=== PATIENT | female | born 1940 | race Caucasian/White ===

== ENCOUNTER 2023-04-22 11:07 | Outpatient (CLI) | payer MEDICARE, SELFPAY ==
--- NOTE | 2023-04-22 11:15 | USCV_ITS ---
Raegan Braun Age: 82 Gender: F : 1940 Exam Date: 04/22/2023 11:26 Ordering Phys: Nancy Verma TACK MAKER TACK MAKER Technologist: CT [place] [facility] [place]ication: murmur BP: 104 / 68 HR: 65 Rhythm: Sinus Technical Quality: Adequate MEASUREMENTS (Male / Female) Normal Values 2D ECHO LV Ejection Fraction MOD 2C 56.7 % LV Ejection Fraction 2C AL 55.8 % LA Diameter 4.0 cm Aorta at Sinotubular Diameter 2.2 cm M-MODE Aortic Annulus Diameter 3.3 cm LA Ao Ratio MM 1.3 MV E Point Septal Separation 1.2 cm DOPPLER AV Peak Velocity 187.0 cm/s LVOT Peak Velocity 140.0 cm/s MV Area PHT 3.1 cm squared Mitral E to A Ratio 0.6 MV E' Velocity 35.0 cm/s Mitral E to MV E' Ratio 8.1 Mitral E to LV E' Lateral Ratio 9.2 Mitral E to LV E' Septal Ratio 7.3 TR Peak Velocity 253.0 cm/s TR Peak Gradient 25.6 mmHg TV Peak E Velocity 76.0 cm/s Right Atrial Pressure 3.0 mmHg Pulmonary Artery Systolic Pressu 28.6 mmHg PV Peak Velocity 105.0 cm/s FINDINGS Left Ventricle Normal left ventricular size and systolic function, EF 55 %. Mild left ventricular hypertrophy. Grade I/IV diastolic dysfunction (abnormal relaxation filling pattern), normal to mildly elevated filling pressures. Right Ventricle The right ventricle is normal in size and function. Right Atrium The right atrium is normal in size. Left Atrium Mildly increased left atrial size. Mitral Valve Thickened mitral valve. Moderate mitral annular calcification. Aortic Valve Thickened aortic valve. Tricuspid Valve Trace to mild tricuspid valve regurgitation. Estimated pulmonary artery peak systolic pressure 29 mmHg Pulmonic Valve Pulmonic valve not well visualized. Pericardium No pericardial effusion. Aorta . Normal aortic annulus size. IVC Inferior vena cava not visualized. CONCLUSIONS Normal left ventricular size and systolic function, EF 55 %. Mild left ventricular hypertrophy. Grade I/IV diastolic dysfunction (abnormal relaxation filling pattern), normal to mildly elevated filling pressures. Mildly increased left atrial size. Thickened mitral valve. Moderate mitral annular calcification. Thickened aortic valve. Trace to mild tricuspid valve regurgitation. Estimated pulmonary artery peak systolic pressure 29 mmHg. There is no pericardial effusion. There are no intracardiac masses. No similar previous studies are available for comparison Dr Sharri Schwab MD FACC (Electronically Signed) Final Date: 24 April 2023 08:44 S
== END 2023-04-22 11:08 | disposition home or self-care (01) ==
LOC: RAD 11:07
PROVIDERS: PCP Nurse Practitioner Family; Visit Provider Nurse Practitioner Family
DX: R01.1 Cardiac murmur, unspecified (principal); I08.0 Rheumatic disorders of both mitral and aortic valves
CPT/HCPCS: 93306

== ENCOUNTER → 2023-05-13 13:56 | Outpatient (BNVA) | payer MEDICARE, SELFPAY | PROVIDERS: PCP Nurse Practitioner Family; Visit Provider Podiatrist Foot & Ankle Surgery | DX: I73.9 Peripheral vascular disease, unspecified (principal); L60.3 Nail dystrophy; L60.8 Other nail disorders; M20.41 Other hammer toe(s) (acquired), right foot; M20.42 Other hammer toe(s) (acquired), left foot | CPT/HCPCS: 11721; 99203 ==

== ENCOUNTER → 2023-06-12 09:02 | Outpatient (BNVA) | payer MEDICARE, SELFPAY | PROVIDERS: PCP Nurse Practitioner Family; Referring Provider Nurse Practitioner Family; Visit Provider Psychiatry & Neurology Neurology | DX: G50.0 Trigeminal neuralgia (principal); F03.A0 Unspecified dementia, mild, without behavioral disturbance, psychotic disturbance, mood disturbance, and anxiety | CPT/HCPCS: 99202 ==

== ENCOUNTER 2023-06-16 23:26 | Observation (INO) | payer MEDICARE, SELFPAY ==
[2023-06-16 23:30] VITALS: BP 128/76; PULSE 68; RESP 17; TEMP 36.6; O2SAT 93; BMI 30.9
--- NOTE | 2023-06-16 23:38 | CTR_ITS ---
PROCEDURE INFORMATION: Exam: CT Head Without Contrast Exam date and time: 06/16/2023 11:59 PM Age: 82 years old Clinical indication: Altered mental status/memory loss; Patient HX: Took to much of her muscle relaxer, found on floor; Additional info: AMS TECHNIQUE: Imaging protocol: Computed tomography of the head without contrast. Radiation optimization: All CT scans at this facility use at least one of these dose optimization techniques: automated exposure control; mA and/or kV adjustment per patient size (includes targeted exams where dose is matched to clinical indication); or iterative reconstruction. COMPARISON: No relevant prior studies available. RADIATION DOSE METRICS: Total DLP (mGy-cm): 1163 FINDINGS: Brain: No evidence for acute intracranial hemorrhage, mass effect, or definite acute infarct by CT. Kzxx-wz-yunqxitj generalized cerebral atrophy. Mpge-me-boadlcmx presumed chronic small-vessel ischemic changes in the cerebral white matter. Cerebral ventricles: No ventriculomegaly. Paranasal sinuses: Visualized sinuses are unremarkable. No fluid levels. Mastoid air cells: Visualized mastoid air cells are well aerated. Bones/joints: Unremarkable. No acute fracture. Soft tissues: Unremarkable. CT/CT head wo con* [id number] IMPRESSION: No acute intracranial abnormality.
--- NOTE | 2023-06-16 23:45 | ECG_ITS ---
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 Measurements Intervals [place] Rate: 68 P: 70 SD: 194 QRS: 36 QRSD: 118 T: 65 QT: 431 QTc: 459 Interpretive Statements SINUS RHYTHM MODERATE INTRAVENTRICULAR CONDUCTION DELAY [110+ ms QRS DURATION] No previous ECG available for comparison Electronically Signed On 06-17-2023 8:47:08 [employer]ACT[employer] by Kwesi Marmolejo M.D. [id number]
[2023-06-16 23:56] VITALS: BP 128/76; PULSE 75; RESP 20; O2SAT 95
--- NOTE | 2023-06-16 23:58 | PC.NURSE ---
poison control rosas states that we should do urine drug screen, watch for seizures and resp depression. 2-3 hours is the peak time. but since there is a chance she took other pills to watch for other symptoms such as tachycardia and hypertension. faxing info.
[2023-06-17] VITALS (11 sets, daily range): BP systolic 151–191; BP diastolic 80–123; PULSE 71–98; RESP 15–22; TEMP 36.2–37; O2SAT 92–99; BMI 30.4
--- NOTE | 2023-06-17 00:06 | XRR_ITS ---
PROCEDURE INFORMATION: Exam: XR Chest Exam date and time: 06/17/2023 12:27 AM Age: 82 years old Clinical indication: Other: AMS TECHNIQUE: Imaging protocol: Radiologic exam of the chest. Views: 1 view. COMPARISON: No relevant prior studies available. FINDINGS: Lungs: Unremarkable. No consolidation. Pleural spaces: Unremarkable. No pleural effusion. No pneumothorax. Heart/Mediastinum: Unremarkable. No cardiomegaly. Bones/joints: Unremarkable. XR/XR chest 1V portable [id number] IMPRESSION: No acute findings.
--- NOTE | 2023-06-17 00:27 | ED_ITS ---
HPI - Altered Mental Status 2 General: Chief Complaint: Altered Mental Status Stated Complaint: AMS Time Seen by Provider: 06/16/23 23:30 History of Present Illness: 82-year-old female presenting with alter ed mental status. She is exhibiting slurred speech, some confusion, and unsteadiness. Her son is here and notes that she fell sometime after orthodoxy this morning probably around 10 AM. They noticed the symptoms at that point, they seem to clear a bit over the course of the day, but she is still not back to baseline, so they wanted her evaluated tonight. Review of Systems 2 Const: Denies: fever(s) ENMT: Denies: throat pain Card: Denies: chest pain Resp: Denies: dyspnea GI: Denies: abdominal pain, nausea or vomiting Musc: Reports: back pain Neuro: Reports: difficulty walking, confusion and Slurred speech present; Denies: headache(s) PFSH ED 2 PFSH: Medical History Anxiety Fracture of right hip requiring operative repair Intestinal abscess 2005 Hypomagnesemia Vitamin D deficiency PVC (premature ventricular contraction) Heart murmur Dementia Trigeminal neuralgia COPD (chronic obstructive pulmonary disease) Hyperlipidemia Osteoarthritis Chronic back pain Hypertension Surgical History History of cataract surgery 2020 History of surgery on wrist 1994, 1995, 1996, 1997 History of total left hip arthroplasty 2016 History of hysterectomy total abdominal Hx of appendectomy 2006 Family History Mother Dementia Sister Dementia Social History Smoking and tobacco/nicotine status: former use of tobacco/nicotine Quit status (tobacco/nicotine): has quit using Year quit tobacco: smoked 40 years Second hand smoke exposure: No Alcohol intake: never Substance/Drug Use: never Household members: family Marital status: / Physical Exam 2 Const: GENERAL APPEARANCE: cooperative, comfortable and frail appearing HENMT: COMMON NORMALS: normocephalic, atraumatic and Normal external nose present HEAD & SCALP: normocephalic and atraumatic FACE & SINUS: normal facial exam and face symmetric NOSE: Normal external nose present Eye: COMMON NORMALS: Equal, round and reactive pupils present and EOMs intact bilaterally PUPIL: Yes Equal, round and reactive pupils present Neck/C-Spine: GENERAL: Yes trachea midline Chest: CHEST: Yes Symmetrical chest wall rise Resp: COMMON NORMALS: normal respiratory effort, No use of accessory muscles and clear to auscultation bilaterally AUSCULTATION: clear to auscultation bilaterally Cardio: COMMON NORMALS: regular rate and regular rhythm RATE: regular rate RHYTHM: regular rhythm GI: COMMON NORMALS: Soft to palpation INSPECTION: Yes normal to inspection PALPATION: Yes Soft to palpation Neuro: BRETT COMA SCALE: document GCS findings Brett coma scale eye opening: Spontaneous Brett coma scale verbal response: Confused (mildly) [place] coma scale motor response: Obey commands Brett coma scale total score: 14 CRANIAL NERVES: Yes CN normal except as noted COORDINATION/BALANCE: o ther (Vjmqyw-wf-wiqt slightly abnormal, symmetrical) SPEECH: abnormal speech Details: slurred MOTOR EXAM: Normal motor muscle tone present throughout C OORDINATION: other (Pbttrv-us-mvdb slightly abnormal, symmetrical) Course 2 Vital Signs: Vital signs: Vital Signs Temperature 98 F 06/16/23 23:30 Pulse Rate 91 06/17/23 02:00 Respiratory Rate 15 06/17/23 02:00 Blood Pressure 188/99 06/17/23 02:00 Pulse Oximetry 92 06/17/23 02:00 Oxygen Delivery Me thod Room Air 06/16/23 23:30 MDM - Altered Mental Status Medical Decision Making The patient is awake. She is mildly confused. She is also mildly ataxic. She is exhibiting some nystagmus. Her son notes that for extra methocarbamol are missing from her pillbox today. He believes she may have taken them. She admits to taking an extra muscle relaxer . Head CT and chest x-ray are nonacute. CBC is normal. Her vitals been normal. Patient is now on oxygen. She is a bit more drowsy. Saturations on room air were 84%. She is 94 on 2 L. She is found to have a urinary tract infection. Potassium is 3.1 and has been repleted orally. She is given IV antibiotics for urinary tract infection. She will be observed. Hospitalist will see the patient in the ER. Lab Data 06/17/23 00:24 06/17/23 00:[address] 06/16/23 23:38 IMPRESSION: No acute intracranial abnormality. Chest X-Ray 06/17/23 00:06 IMPRESSION: No acute findings. Laboratory Results WBC 9.84 10^3/uL (3.29-11.43) 06/17/23 00:24 RBC 4.04 10^6/uL (3.85-5.65) 06/17/23 00:24 Hgb 12.90 g/dL (11.27-16.99) 06/17/23 00:24 Hct 38.5 % (36-47) 06/17/23 00:24 MCV 95.3 fl (85-98) 06/17/23 00:24 MCH 31.9 pg (27-33) 06/17/23 00:24 MCHC 33.5 g/dL (30-55) 06/17/23 00:24 RDW 13.1 % (12.1-15.1) 06/17/23 00:24 Plt Count 190 10^3/cmm (157-399) 06/17/23 00:24 MPV 9.8 fL (7.4-10.4) 06/17/23 00:24 Neut % (Auto) 76.3 % 06/17/23 00:24 Lymph % (Auto) 14.9 % 06/17/23 00:24 [place] % (Auto) 6.9 % 06/17/23 00:24 Eos % (Auto) 1.1 % 06/17/23 00:24 Baso % (Auto) 0.6 % 06/17/23 00:24 Neut # (Auto) 7.50 10^3/uL (1.8-7.7) 06/17/23 00:24 Lymph # (Auto) 1.5 10^3/uL (0.8-4.8) 06/17/23 00:24 [place] # (Auto) 0.7 10^3/uL (0.2-0.9) 06/17/23 00:24 Eos # (Auto) 0.1 10^3/uL (0.0-0.8) 06/17/23 00:24 Baso # (Auto) 0.1 10^3/uL (0.0-0.1) 06/17/23 00:24 Nucleated RBC % (auto) 0 % 06/17/23 00:24 Nucleated RBCs # 0.0 /100WBC 06/17/23 00:24 Sodium 141 mmol/L (136-145) 06/17/23 00:24 Potassium 3.1 mmol/L (3.5-5.1) L 06/17/23 00:24 Chloride 104 mmol/L (98-107) 06/17/23 00:24 Carbon Dioxide 25 mmol/L (22-29) 06/17/23 00:24 Anion Gap 15.1 (5-19) 06/17/23 00:24 BUN 17 mg/dL (8-23) 06/17/23 00:24 Creatinine 0.6 mg/dL (0.5-0.9) 06/17/23 00:24 GFR Calculation Not Reportable 06/17/23 00:24 Glucose 125 mg/dL (65-115) H 06/17/23 00:24 Calculated Osmolality 295 mOsm/kg (285-295) 06/17/23 00:24 Calcium 8.4 mg/dL (8.5-10.5) L 06/17/23 00:24 Total Bilirubin 0.2 mg/dL (0.15-1.2) 06/17/23 00:24 AST 14 U/L (0-32) 06/17/23 00:24 ALT 8 U/L (0-33) 06/17/23 00:24 Alkaline Phosphatase 96 U/L (35-105) 06/17/23 00:24 Total Protein 5.9 g/dL (6.6-8.7) L 06/17/23 00:24 Albumin 3.6 g/dL (3.5-5.2) 06/17/23 00:24 Globulin 2.3 g/dL (1.3-4.6) 06/17/23 00:24 TSH 3.59 uIU/mL (0.27-4.20) 06/17/23 00:24 Urine Color Yellow (Yellow) 06/17/23 01:56 Urine Appearance Cloudy (CLEAR) A 06/17/23 01:56 Urine pH 6.5 (5-7) 06/17/23 01:56 Ur Specific [place] 1.015 (1.005-1.030) 06/17/23 01:56 Urine Protein Neg (Negative) 06/17/23 01:56 Urine Glucose (UA) Norm (Normal) 06/17/23 01:56 Urine Ketones Negative (Negative) 06/17/23 01:56 Urine Blood Trace (Negative) H 06/17/23 01:56 Urine Nitrate Negative (Negative) 06/17/23 01:56 Urine Bilirubin Neg (Negative) 06/17/23 01:56 Urine Urobilinogen Norm mg/dL (Negative) 06/17/23 01:56 Ur Leukocyte Esterase 2+ (Negative) H 06/17/23 01:56 Urine RBC 0-4 /hpf (0-2) H 06/17/23 01:56 Urine WBC 25-40 /hpf (0-5) H 06/17/23 01:56 Ur Squamous Epith Cells 15-25 /hpf (0-5) H 06/17/23 01:56 Amorphous Sediment 2+ /hpf 06/17/23 01:56 Urine Bacteria 2+ /hpf (NONE) H 06/17/23 01:56 Hyaline Casts 0-4 /lpf H 06/17/23 01:56 Coarse Granular Casts 0-4 /lpf H 06/17/23 01:56 Urine Mucus 1+ /hpf 06/17/23 01:56 Salicylates < 0.3 mg/dL (3-10) L 06/17/23 00:24 Urine Opiates Screen Negative ng/mL (Negative) 06/17/23 01:54 Acetaminophen < 5.0 ug/mL (10-30) L 06/17/23 00:24 Ur Barbiturates Screen Negative ng/mL (Negative) 06/17/23 01:54 Ur Phencyclidine Scrn Negative ng/mL (Negative) 06/17/23 01:54 Ur Amphetamines Screen Negative ng/mL (Negative) 06/17/23 01:54 U Benzodiazepines Scrn Negative ng/mL (Negative) 06/17/23 01:54 Urine Cocaine Screen Negative ng/mL (Negative) 06/17/23 01:54 U Marijuana (THC) Screen Negative ng/mL (Negative) 06/17/23 01:54 Ethyl Alcohol < 10 mg/dL (0-10) 06/17/23 00:24 All radiology interpretation(s) finalized by discharge Discharge Plan Discharge Patient Disposition: Placed in Observation Clinical Impression: Altered mental status, Accidental overdose, Acute UTI Coding Level of Care Code ED Environmental Monitoring Specialist for Wilfredo Zaragoza
[2023-06-17 00:31] LABS: Basophils # 0.1 10^3/uL (0.0-0.1); Basophils % 0.6 %; Eosinophils # 0.1 10^3/uL (0.0-0.8); Eosinophils % 1.1 %; Hematocrit 38.5 % (36-47); Lymphocytes # 1.5 10^3/uL (0.8-4.8); Lymphocytes % 14.9 %; Mean Corpuscular HGB Conc 33.5 g/dL (30-55); Mean Corpuscular Hemoglobin 31.9 pg (27-33); Mean Corpuscular Volume 95.3 fl (85-98); Mean Platelet Volume 9.8 fL (7.4-10.4); Monocytes # 0.7 10^3/uL (0.2-0.9); Monocytes % 6.9 %; Neutrophils % 76.3 %; Nucleated Red Blood Cells % 0 %; Platelet Count 190 10^3/cmm (157-399); Red Blood Count 4.04 10^6/uL (3.85-5.65); Red Cell Distribution Width 13.1 % (12.1-15.1); White Blood Count 9.84 10^3/uL (3.29-11.43)
[2023-06-17] MEDS: sodium chloride 0.9% 1,000 ML 999 ML IV (00:40)
[2023-06-17 00:59] LABS: Alanine Aminotransferase 8 U/L (0-33); Albumin Level 3.6 g/dL (3.5-5.2); Alkaline Phosphatase 96 U/L (35-105); Anion Gap 15.1 (5-19); Aspartate Amino Transferase 14 U/L (0-32); Blood Urea Nitrogen 17 mg/dL (8-23); Calcium 8.4 mg/dL (8.5-10.5); Carbon Dioxide 25 mmol/L (22-29); Chloride 104 mmol/L (98-107); Globulin 2.3 g/dL (1.3-4.6); Glucose 125 mg/dL (65-115); Osmolality Calculated 295 mOsm/kg (285-295); Potassium 3.1 mmol/L (3.5-5.1); Sodium 141 mmol/L (136-145); Thyroid Stimulating Hormone 3.59 uIU/mL (0.27-4.20); Total Bilirubin 0.2 mg/dL (0.15-1.2); Total Protein 5.9 g/dL (6.6-8.7)
[2023-06-17 01:01] LABS: Acetaminophen < 5.0 ug/mL (10-30); Alcohol Level < 10 mg/dL (0-10); Salicylate < 0.3 mg/dL (3-10)
[2023-06-17 02:00] LABS: Add Urine Microscopic? YES; Bilirubin Urine Neg (Negative); Blood Urine Trace (Negative); Glucose Urine UA Norm (Normal); Ketones Urine Negative (Negative); Leukocyte Esterase Urine 2+ (Negative); Nitrate Urine Negative (Negative); Protein Urine Neg (Negative); Specific Gravity, Urine 1.015 (1.005-1.030); Urine Appearance Cloudy (CLEAR); Urine Color Yellow (Yellow); Urobilinogen Urine Norm (Negative); pH Urine 6.5 (5-7)
[2023-06-17 02:05] LABS: RBC Urine 0-4 /hpf (0-2)
[2023-06-17 02:06] LABS: Bacteria Urine 2+ /hpf; Mucus Urine 1+ /hpf; Squamous Epithelial Cell Urine 15-25 /hpf (0-5); WBC Urine 25-40 /hpf (0-5)
[2023-06-17 02:07] LABS: Amorphous Sediment Urine 2+ /hpf; Coarse Granular Casts Urine 0-4 /lpf; Hyaline Casts Urine 0-4 /lpf
[2023-06-17] MEDS: potassium chloride oral liq 20 mEq/15 mL UDC 40 MEQ PO (02:07)
[2023-06-17 02:08] LABS: Amphetamines Screen Urine Negative (Negative); Barbiturates Screen Urine Negative (Negative); Benzodiazepines Screen Urine Negative (Negative); Cocaine Screen Urine Negative (Negative); Opiate Screen Urine Negative (Negative); PCP Screen Urine Negative (Negative); THC Screen Urine Negative (Negative)
[2023-06-17] MEDS: cefTRIAXone 1,000 MG in sodium chloride 0.9% (plus) 50 ML 100 MG IV (02:46)
[2023-06-17 03:06] LABS: Carbamazepine Tegretol 17.4 ug/mL (4.0-12.0)
--- NOTE | 2023-06-17 04:01 | P.HP_ITS ---
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 Family have found that she had likely taken extra muscle relaxer to which she had admitted. She is awake, she thinks she is at home currently, states the only pain she has is her lower back pain which is a chronic problem. Denies other pain. No headache. In ER she is found to have ataxia, confusion, some slurred speech, asterixis. Head CT without acute abnormality. Chest x-ray without acute findings. UA with contaminated sample, 15-25 squamous ocular cells, 2+ leukocyte esterase, 25-40 WBC. Received a dose of Rocephin. Review of Systems 2 Const: Denies: fever(s), chills, body aches or malaise ENMT: Denies: throat pain Card: Denies: chest pain, edema, pre-syncope or dyspnea on exertion Resp: Denies: dyspnea, productive cough, change in phlegm color or hemoptysis GI: Denies: abdominal pain, nausea, vomiting, diarrhea, constipation, hematochezia or melena : Denies: flank pain, urinary frequency or hematuria Musc: Denies: back pain, joint swelling or joint redness Skin/Breast: Denies: rash or new lesions Neuro: Reports: lack of coordination, difficulty walking, confusion and Slurred speech present; Denies: headache(s) or dizziness Medications/Allergies Home Medications Medication Instructions Recorded Confirmed Last Taken Type albuterol sulfate 2.5 mg/3 mL 2.5 mg (3 mL) inhalation QID PRN 02/19/23 06/12/23 Unknown Rx (0.083 %) solution for nebulization shortness of breath or wheezing #90 mL albuterol sulfate 90 mcg/actuation 2 puff inhalation Q6H PRN 02/19/23 06/12/23 Unknown Rx aerosol inhaler shortness of breath or wheezing #8.5 grams cholecalciferol (vitamin D3) 50 50 mcg PO DAILY 02/19/23 06/12/23 Unknown History mcg (2,000 unit) capsule hydrochlorothiazide 25 mg tablet 25 mg PO DAILY 02/19/23 06/12/23 Unknown History ipratropium 0.5 mg-albuterol 3 mg 3 ml inhalation Q6H PRN wheezing 02/19/23 06/12/23 Unknown Rx (2.5 mg base)/3 mL nebulization #90 mL soln mecobalamin (vitamin B12) 1,000 1,000 mcg sublingual DAILY 02/19/23 06/12/23 Unknown History mcg disintegrating tablet,sublingual melatonin 10 mg capsule 10 mg PO DAILY 02/19/23 06/12/23 Unknown History multivitamin with minerals 1 tab PO DAILY 02/19/23 06/12/23 Unknown History (Multiple Vitamin-Minerals tablet) potassium chloride 20 mEq 20 meq PO DAILY 02/19/23 06/12/23 Unknown History tablet,extended release tramadol 50 mg tablet 50 mg PO BID PRN pain #60 tabs 02/19/23 06/12/23 Unknown Rx cefdinir 300 mg capsule 300 mg PO BID 10 days #20 caps 04/11/23 06/12/23 Unknown Rx lisinopril 40 mg tablet 40 mg PO DAILY #90 tabs 04/19/23 06/12/23 Unknown Rx sertraline 100 mg tablet 100 mg PO DAILY #90 tabs 04/19/23 06/12/23 Unknown Rx simvastatin 40 mg tablet 40 mg PO DAILY #90 tabs 04/19/23 06/12/23 Unknown Rx hydralazine 10 mg tablet 10 mg PO TID 90 days #270 tabs 04/26/23 06/12/23 Unknown Rx carbamazepine 200 mg tablet 200 mg PO BID #60 tabs 06/12/23 06/12/23 Unknown Rx gabapentin 100 mg capsule 100 mg PO .hs #90 caps 06/12/23 06/12/23 Unknown Rx memantine 5 mg tablet 5 mg PO BID #180 tabs 06/12/23 06/12/23 Unknown Rx Allergies Allergy/AdvReac Type Severity Reaction Status Date / Time amlodipine Allergy Unknown unknown Verified 06/12/23 09:12 propranolol Allergy Unknown Unknown Verified 06/12/23 09:12 zolpidem [From Ambien] AdvReac Intermediate confusion Verified 06/12/23 09:12 PFSH Acute 2 PFSH: Medical History Anxiety Fracture of right hip requiring operative repair Intestinal abscess 2005 Hypomagnesemia Vitamin D deficiency PVC (premature ventricular contraction) Heart murmur Dementia Trigeminal neuralgia COPD (chronic obstructive pulmonary disease) Hyperlipidemia Osteoarthritis Chronic back pain Hypertension Surgical History History of cataract surgery 2020 History of surgery on wrist 1994, 1995, 1996, 1997 History of total left hip arthroplasty 2015 History of hysterectomy total abdominal Hx of appendectomy 2005 Family History Mother Dementia Sister Dementia Social History Smoking and tobacco/nicotine status: former use of tobacco/nicotine Quit status (tobacco/nicotine): has quit using Year quit tobacco: smoked 40 years Second hand smoke exposure: No Alcohol intake: never Substance/Drug Use: never Household members: family Marital status: / Vitals/I&O/Wt Last Vital Signs Temp 97.7 F 06/17/23 03:49 Pulse 71 06/17/23 03:49 Resp 19 H 06/17/23 02:45 BP 191/123 06/17/23 03:49 Pulse Ox 92 06/17/23 03:49 O2 Del Method Nasal Cannula 06/17/23 03:49 06/16/23 06/16/23 06/17/23 14:59 22:59 06:59 Intake Total 1000 / 1000 Balance 1000 / 1000 Weight last 48 hrs Weight 81.647 kg Physical Exam 2 Const: COMMON NORMALS: alert; negative for patient oriented x3 GENERAL APPEARANCE: cooperative O RIENTATION/CONSCIOUSNESS: Yes awake HENMT: COMMON NORMALS: oropharynx normal Neck/C-Spine: COMMON NORMALS: no JVD Resp: COMMON NORMALS: normal respiratory effort and clear to auscultation bilaterally AUSCULTATION: clear to auscultation bilaterally Cardio: COMMON NORMALS: no JVD, regular rhythm, S1 normal heart sound present, S2 normal heart sound present and No murmurs present (Cardio) RHYTHM: regular rhythm HEART SOUNDS: S1 normal heart sound present and S2 normal heart sound present GI: COMMON NORMALS: Normal to inspection, nondistended, normoactive bowel sounds present, Soft to palpation and non-tender PALPATION: Yes Soft to palpation Extremity: COMMON NORMALS: no joint enlargement and no pedal edema Neuro: COMMON NORMALS: patient oriented x3 and moves all extremities S ENSORIUM/ORIENTATION: Yes alert OTHER: Close directions although sometimes with some additional prompting. I do not appreciate facial droop. No significant dysarthria. Tracks horizontally. Visual mcgowan full to confrontation, no visual extinction. Some moderate difficulty with FNF. No upper or lower extremity drift. Is noted to have some asterixis. Sensation symmetrical. Skin: COMMON NORMALS: no rashes or lesions noted GENERAL SKIN EXAM: no rashes or lesions noted Data 06/17/23 00:24 06/17/23 00:24 A&P Assessment and plan (1) Altered mental status: Acute encephalopathy with ataxia, slurred speech, asterixis, acute flexor doses of methocarbamol. Reviewed vitals, CBC, CMP, TSH, UA, TSH, EKG, CT, chest x- ray, ER note, discussed with ER physician. Additionally on at least several medications which can contribute to altered mental status, taking carbamazepine, gabapentin for trigeminal neuralgia, appears may be taking tramadol as well. Hold his medicines. Check carbamazepine level. With some ataxia, risk factors of CVA, very elevated blood pressure as well 191/123, will request for additional assessment by MRI brain for possibility of CVA. As blood pressure is very elevated we will give 1 dose hydralazine 5 mg, reassess blood pressure. Question of possible hypertensive encephalopathy, although blood pressure was not as high when she had just come in. Additionally carbamazepine level is now back and on review appears to be high as well, possibly contributing to her encephalopathy, ataxia, asterixis, possible toxic encephalopathy. Hold carbamazepine. Hold memantine for now as well. Fall precautions. Will request for one-to-one sitter for now if available as I am concerned she may be at somewhat elevated risk of fall with confusion, ataxia. (2) Accidental overdose: Of methocarbamol. Denied active suicidal ideation, however, did report to the nurse that she sometimes wishes she could go to sleep and never wake up. She is currently still not oriented, although does have underlying dementia as well. Still with ataxia, asterixis. As mental status improves, would obtain psychiatry evaluation prior to discharge. (3) Abnormal urinalysis: UA abnormal but appears contaminated sample, 15-25 squamous p.o. cells. Received a dose of Rocephin. Hold additional antibiotic for now. Will request repeat UA. Plan Trigeminal neuralgia: Following with neurology, on carbamazepine, gabapentin, possibly tramadol as well. Requesting home medications to be reconciled. Carbamazepine level now returned and is elevated, possible toxicity. Hold carbamazepine for now. Dementia: No family available to discuss, unknown baseline. On memantine. Hold for now due to confusion, possible adverse effect. Also risk of CVA. COPD: Not in exacerbation HTN: Poorly controlled hypertension at the moment. Altered mental status suspected secondary to encephalopathy, metabolic versus possibly toxic secondary to medication overdose and carbamazepine toxicity, but will additionally assess for possibility of CVA. Will avoid aggressive blood pressure decrease for the time being, blood pressure is quite high 191/123, so we will give a small dose of IV hydralazine. Reassess blood pressure. Chronic back pain: One of the first thing she mentions. Possibly reason for overdose with muscle relaxant. Please discuss with her once she is little bit more lucid. Requesting to list home medications, please review and resume once available. Attestations 2 Medical Necessity Statement*: Place in observation for additional assessment management due to altered mental status, suspected acute toxic encephalopathy with medication overdose, as well as carbamazepine toxicity, assessment for possible additional causes. Diagnoses Altered mental status R41.82 Accidental overdose T50.901A Abnormal urinalysis R82.90
--- NOTE | 2023-06-17 04:25 | MR_ITS ---
WS: [id number] MRI BRAIN WITHOUT CONTRAST HISTORY: AMS, ataxia, assess for poss cva COMPARISON: CT head 06/16/2023 TECHNIQUE: Diffusion imaging, multiplanar T1, T2 and FLAIR imaging obtained. No acute infarct or hemorrhage. Moderate to advanced patchy and confluent areas of increased T2 and F LAIR signal throughout the white matter. No infarct. Moderate bilateral frontal and temporal lobe atrophy. Moderate bilateral hippocampal atrophy. Slightl y greater atrophy on the LEFT. Ventricles and extra-axial spaces are dilated on the basis of central and peripheral atrophy. No hydr ocephalus. No inferior displacement of cerebellar tonsils. The sella turcica and pituitary gland are unremarkabl e. Dural venous sinuses and [place] of [place] demonstrate no abnormality on this unenhanced studies. Paranasal sinuses: Clear. Mastoid air cells: Normal. Calvarium and scalp: Intact. IMPRESSION: 1. No acute infarct. Normal diffusion imaging. 2. Advanced small vessel ischemic type changes with no large territory infarct. 3. Moderate bifrontal and temporal lobe atrophy. 4. Moderate bilateral hippocampal atrophy, LEFT greater than RIGHT.
[2023-06-17] MEDS: hyDRALAzine 20 mg/mL INJ 1 mL 5 MG IVP (05:03)
[2023-06-17 06:49] LABS: Carbamazepine Tegretol 13.3 ug/mL (4.0-12.0)
[2023-06-17 11:13] LABS: Iron 37 ug/dL (37-145); Percent Saturation 13.9 % (20-50); Total Iron Binding Capacity 265 mcg/dl; Unsaturated Iron Binding 228 ug/dL (112-347)
[2023-06-17 11:29] LABS: Vitamin B12 339 pg/mL (232-1245)
[2023-06-17 14:06] LABS: Charge for UA Resulting for Rev
[2023-06-17] MEDS: sodium chloride 0.9% 1,000 ML 50 ML IV (14:16)
[2023-06-17 14:43] LABS: Urine Appearance Clear (CLEAR); Urine Color Yellow (Yellow)
[2023-06-17 14:44] LABS: Add Urine Microscopic? YES; Bilirubin Urine Neg (Negative); Blood Urine Neg (Negative); Glucose Urine UA Norm (Normal); Ketones Urine Negative (Negative); Leukocyte Esterase Urine 1+ (Negative); Nitrate Urine Negative (Negative); Protein Urine Neg (Negative); Specific Gravity, Urine 1.005 (1.005-1.030); Urobilinogen Urine Norm (Negative); pH Urine 6.5 (5-7)
--- NOTE | 2023-06-17 15:12 | W.PM.EVENTAC ---
Event Note Event Note: Admitted overnight. H&P and labs appreciated. Examination patient laying comfortably in bed, awake and alert to self, being in the hospital, she is not sure why she is in the hospital, she is alert to her son, states most of the medications are set up by the son. States she recently moved to [place]. MRI results appreciated. No concerns for stroke but concern for significant atrophy. Concerns for UTI on admission. Follow-up urine culture. Continue with IV ceftriaxone. Check vitamin B12, folate level, lipid panel. Appreciate TSH. Normal saline at 50 cc/h. Restart sertraline at lower dose of 50 mg daily. Hold off on carbamazepine for now. Carbamazepine level slightly elevated on admission. Goal blood pressure less than 140/90 mmHg. Restart home dose of lisinopril, hold off on hydrochlorothiazide because of hypokalemia on admission, restart home dose of hydralazine. Will uptitrate as for goal blood pressures. PT/OT evaluation for cognitive studies. Moderate MDM includes number and complexity of problems actively addressed during encounter, amount and/or complexity of data reviewed/ordered [ previous or external records, resulted lab(s)/test(s), ordered lab(s)/test(s), independent test interpretation and other healthcare professional discussion] and described risk of complication, morbidity or mortality of management as documented
[2023-06-17] MEDS: memantine 5 mg tablet PO (17:10)
[2023-06-17] MEDS: gabapentin 100 mg Capsule PO (17:10)
[2023-06-17] MEDS: acetaminophen 325 mg Tablet 650 MG PO (17:17)
[2023-06-17] MEDS: hyDRALAzine 10 mg Tablet PO (21:18)
[2023-06-18] VITALS: BP 197/113
[2023-06-18 00:33] VITALS: BP 210/110; PULSE 75; RESP 18; O2SAT 95
[2023-06-18] MEDS: hyDRALAzine 20 mg/mL INJ 1 mL 10 MG IVP ×2 (01:25→09:01)
[2023-06-18] MEDS: lisinopril 20 mg Tablet 40 MG PO (02:44)
[2023-06-18 04:47] VITALS: BP 193/94; PULSE 82; RESP 18; O2SAT 92
--- NOTE | 2023-06-18 06:12 | PC.NURSE ---
Pt growing increasingly upset with blood pressure readings. She refused any further medication or blood draw from Lab until her son arrives. Doctor notified at this time of situation.
[2023-06-18] MEDS: sertraline 100 mg Tablet 50 MG PO (07:49)
[2023-06-18] MEDS: hyDRALAzine 10 mg Tablet PO (07:50)
[2023-06-18] MEDS: carBAMazepine 200 mg Tablet 100 MG PO (07:50)
[2023-06-18 08:00] VITALS: BP 196/106; PULSE 76; RESP 20; TEMP 36.3; O2SAT 94
--- NOTE | 2023-06-18 08:01 | PC.NURSE ---
Patient refuses to take some medications. This nurse talked patient into taking the most important medications this morning. Patient wants no one in room bothering her at all. Is refusing some care.
--- NOTE | 2023-06-18 09:50 | PC.CHAP ---
Pastoral Care Encounter/Spiritual Assessment Type of Contact [] Declined relief cook visit [] Patient/Family/Request visit [] Outpatient visit [] Follow-up visit [] Physician referral [] Code/Alert [] Routine visit [] Staff referral [] Actively dying [] Patient sleeping [] Family support [] [] Out of room [] Palliative care [] [x] Receiving care in room [] Pre-surgical visit [] Trauma [] Long length of stay [] ICU visit [] Other: Relational/Emotional Strength [] Patient feels connected with others/family/visitors/staff [] Distress [] Loneliness/isolation [] Abandonment Spirituality of Patient [] Person of Celestina [] Attends Hinduism of their Celestina [] Believes in Prayer [] Reads Bible or Hoahaoism materials [] There are Spiritual issues to be addressed Spray I Painter Interventions [] Prayer [] Active listening [] Non-anxious presence [] Spiritual/emotional support [] Crisis/trauma care [] Spiritual counseling [] Bereavement support [] Provided bereavement packet [] Provided Bible/devotional materials [] Provided toy/stuffed animal, coloring book to patient or family member [] Provided Communion [] Anointing/[place] [] Salvation [] Completed spiritual assessment [] Other: Impact on Illness or Injury [] Angry [] Fearful [] Anxious [] Often cries [] Exhaustion [] Unable to work [] Unable to attend restorationist [] Unable to walk/stand [] Unable to read [] Unable to drive [] Unable to eat/drink [] Unable to sleep [] Unable to be with family [] Patient intubated [] Other: Summary Time spent with patient
[2023-06-18] MEDS: acetaminophen 325 mg Tablet 650 MG PO (10:11)
[2023-06-18] MEDS: carvedilol 6.25 mg Tablet PO (10:11)
--- NOTE | 2023-06-18 10:38 | PM.DCS ---
Discharge Providers Date of Admission: 06/17/23 03:01 Date of Discharge: June 18, 2023 Attending Provider at Admission: Warren Verdugo Attending Provider at Discharge: Keo Gamble MD Primary Care Provider: MARYJANE Polanco Diagnoses at Discharge Discharge Diagnosis (1) Altered mental status: Status: Acute (2) Accidental overdose: Status: Acute (3) Abnormal urinalysis: Status: Acute Reason for Visit Reason for Visit: AMS Brief History: History as per HPI: 82-year-old lady with a history of dementia, trigeminal neuralgia, COPD, HTN, chronic back pain, other medical problems was noticed to have some confusion, slurred speech, unsteady gait, had a fall after returning from [facility]ational, symptoms have been slow to resolve. Family have found that she had likely taken extra muscle relaxer to which she had admitted. She is awake, she thinks she is at home currently, states the only pain she has is her lower back pain which is a chronic problem. Denies other pain. No headache. In ER she is found to have ataxia, confusion, some slurred speech, asterixis. Head CT without acute abnormality. Chest x-ray without acute findings. UA with contaminated sample, 15-25 squamous ocular cells, 2+ leukocyte esterase, 25-40 WBC. Received a dose of Rocephin. Hospital Course Hospital Course Patient was admitted to the hospital further evaluation and management of altered mental status which was thought to be in setting of accidental overdose of prescribed medications. As per the history from the son it is possible that after coming back from discharge patient might have taken extra doses of carbamazepine from the as needed medication box. During hospitalization patient remained AOx3 with occasional episodes of paranoia. She refused but denied any suicidal or homicidal ideations. Her carbamazepine levels were found to be elevated. Her hospitalization was otherwise unremarkable. Detailed discussion of treatment plan was done at bedside with patient and her son. Plan going forward would be to continue carbamazepine and other medications at the current dose with increase in antihypertensive dose of lisinopril and hydralazine. She is not to take hydrochlorothiazide anymore. She is to have a repeat level carbamazepine in 1 week and continue checking her blood pressures at home and follow-up with a primary care provider within next 1 week for further adjustment of antihypertensives. Physical Exam Const: COMMON NORMALS: patient oriented x3 and alert GENERAL APPEARANCE: cooperative ORIENTATION/CONSCIOUSNESS: Yes awake HENMT: COMMON NORMALS: oropharynx normal Neck/C-Spine: COMMON NORMALS: no JVD Resp: COMMON NORMALS: normal respiratory effort and clear to auscultation bilaterally AUSCULTATION: clear to auscultation bilaterally Cardio: COMMON NORMALS: no JVD, regular rhythm, S1 normal heart sound present, S2 normal heart sound present and No murmurs present (Cardio) RHYTHM: regular rhythm HEART SOUNDS: S1 normal heart sound present and S2 normal heart sound present GI: COMMON NORMALS: Normal to inspection, nondistended, normoactive bowel sounds present, Soft to palpation and non-tender PALPATION: Yes Soft to palpation Extremity: COMMON NORMALS: no joint enlargement and no pedal edema Neuro: COMMON NORMALS: patient oriented x3 and moves all extremities SENSORIUM/ORIENTATION: Yes alert OTHER: Close directions although sometimes with some additional prompting. I do not appreciate facial droop. No significant dysarthria. Tracks horizontally. Visual mc[place]an full to confrontation, no visual extinction. Some moderate difficulty with FNF. No upper or lower extremity drift. Is noted to have some asterixis. Sensation symmetrical. Skin: COMMON NORMALS: no rashes or lesions noted GENERAL SKIN EXAM: no rashes or lesions noted Discharge Data Studies Completed and Pending Completed Studies During Hospitalization Category Date Time Status CT head wo con* [id number] Stat Cat Scan 06/16/23 23:38 Completed XR chest 1V portable [id number] Stat Exams 06/17/23 00:06 Completed MR head wo con* [id number] Routine MRI 06/17/23 04:25 Completed Pending at discharge Category Date Time Status Complete Blood Count w/Auto AM LABS Lab 06/18/23 04:00 Ordered Complete Blood Count w/Auto AM LABS Lab 06/19/23 04:00 Ordered Complete Blood Count w/Auto AM LABS Lab 06/20/23 04:00 Ordered Comprehensive Metabolic Panel AM LABS Lab 06/18/23 04:00 Ordered Folate Level AM LABS Lab 06/18/23 04:00 Ordered Hemoglobin A1C AM LABS Lab 06/18/23 04:00 Ordered Lipid Profile w/VLDL Routine Lab 06/18/23 04:00 Ordered MAG [Magnesium] AM LABS Lab 06/18/23 04:00 Ordered MAG [Magnesium] AM LABS Lab 06/19/23 04:00 Ordered MAG [Magnesium] AM LABS Lab 06/20/23 04:00 Ordered Urine Culture Routine Lab 06/17/23 11:20 Received Radiology Impressions Head CT 06/16/23 23:38 IMPRESSION: No acute intracranial abnormality. Chest X-Ray 06/17/23 00:06 IMPRESSION: No acute findings. Laboratory Results WBC 9.84 10^3/uL (3.29-11.43) 06/17/23 00:24 RBC 4.04 10^6/uL (3.85-5.65) 06/17/23 00:24 Hgb 12.90 g/dL (11.27-16.99) 06/17/23 00:24 Hct 38.5 % (36-47) 06/17/23 00:24 MCV 95.3 fl (85-98) 06/17/23 00:24 MCH 31.9 pg (27-33) 06/17/23 00:24 MCHC 33.5 g/dL (30-55) 06/17/23 00:24 RDW 13.1 % (12.1-15.1) 06/17/23 00:24 Plt Count 190 10^3/cmm (157-399) 06/17/23 00:24 MPV 9.8 fL (7.4-10.4) 06/17/23 00:24 Neut % (Auto) 76.3 % 06/17/23 00:24 Lymph % (Auto) 14.9 % 06/17/23 00:24 [place] % (Auto) 6.9 % 06/17/23 00:24 Eos % (Auto) 1.1 % 06/17/23 00:24 Baso % (Auto) 0.6 % 06/17/23 00:24 Neut # (Auto) 7.50 10^3/uL (1.8-7.7) 06/17/23 00:24 Lymph # (Auto) 1.5 10^3/uL (0.8-4.8) 06/17/23 00:24 [place] # (Auto) 0.7 10^3/uL (0.2-0.9) 06/17/23 00:24 Eos # (Auto) 0.1 10^3/uL (0.0-0.8) 06/17/23 00:24 Baso # (Auto) 0.1 10^3/uL (0.0-0.1) 06/17/23 00:24 Nucleated RBC % (auto) 0 % 06/17/23 00:24 Nucleated RBCs # 0.0 /100WBC 06/17/23 00:24 Sodium 141 mmol/L (136-145) 06/17/23 00:24 Potassium 3.1 mmol/L (3.5-5.1) L 06/17/23 00:24 Chloride 104 mmol/L (98-107) 06/17/23 00:24 Carbon Dioxide 25 mmol/L (22-29) 06/17/23 00:24 Anion Gap 15.1 (5-19) 06/17/23 00:24 BUN 17 mg/dL (8-23) 06/17/23 00:24 Creatinine 0.6 mg/dL (0.5-0.9) 06/17/23 00:24 GFR Calculation Not Reportable 06/17/23 00:24 Glucose 125 mg/dL (65-115) H 06/17/23 00:24 Calculated Osmolality 295 mOsm/kg (285-295) 06/17/23 00:24 Calcium 8.4 mg/dL (8.5-10.5) L 06/17/23 00:24 Iron 37 ug/dL (37-145) 06/17/23 00:24 TIBC 265 mcg/dl 06/17/23 00:24 % Saturation 13.9 % (20-50) L 06/17/23 00:24 Unsat Iron Binding 228 ug/dL (112-347) 06/17/23 00:24 Total Bilirubin 0.2 mg/dL (0.15-1.2) 06/17/23 00:24 AST 14 U/L (0-32) 06/17/23 00:24 ALT 8 U/L (0-33) 06/17/23 00:24 Alkaline Phosphatase 96 U/L (35-105) 06/17/23 00:24 Total Protein 5.9 g/dL (6.6-8.7) L 06/17/23 00:24 Albumin 3.6 g/dL (3.5-5.2) 06/17/23 00:24 Globulin 2.3 g/dL (1.3-4.6) 06/17/23 00:24 Vitamin B12 339 pg/mL (232-1245) 06/17/23 00:24 TSH 3.59 uIU/mL (0.27-4.20) 06/17/23 00:24 Urine Color Yellow (Yellow) 06/17/23 13:50 Urine Appearance Clear (CLEAR) 06/17/23 13:50 Urine pH 6.5 (5-7) 06/17/23 13:50 Ur Specific [place] 1.005 (1.005-1.030) 06/17/23 13:50 Urine Protein Neg (Negative) 06/17/23 13:50 Urine Glucose (UA) Norm (Normal) 06/17/23 13:50 Urine Ketones Negative (Negative) 06/17/23 13:50 Urine Blood Neg (Negative) 06/17/23 13:50 Urine Nitrate Negative (Negative) 06/17/23 13:50 Urine Bilirubin Neg (Negative) 06/17/23 13:50 Urine Urobilinogen Norm mg/dL (Negative) 06/17/23 13:50 Ur Leukocyte Esterase 1+ (Negative) H 06/17/23 13:50 Urine RBC 0-4 /hpf (0-2) H 06/17/23 01:56 Urine WBC 25-40 /hpf (0-5) H 06/17/23 01:56 Ur Squamous Epith Cells 15-25 /hpf (0-5) H 06/17/23 01:56 Amorphous Sediment 2+ /hpf 06/17/23 01:56 Urine Bacteria 2+ /hpf (NONE) H 06/17/23 01:56 Hyaline Casts 0-4 /lpf H 06/17/23 01:56 Coarse Granular Casts 0-4 /lpf H 06/17/23 01:56 Urine Mucus 1+ /hpf 06/17/23 01:56 Salicylates < 0.3 mg/dL (3-10) L 06/17/23 00:24 Urine Opiates Screen Negative ng/mL (Negative) 06/17/23 01:54 Acetaminophen < 5.0 ug/mL (10-30) L 06/17/23 00:24 Ur Barbiturates Screen Negative ng/mL (Negative) 06/17/23 01:54 Carbamazepine 13.3 ug/mL (4.0-12.0) H 06/17/23 06:10 Ur Phencyclidine Scrn Negative ng/mL (Negative) 06/17/23 01:54 Ur Amphetamines Screen Negative ng/mL (Negative) 06/17/23 01:54 U Benzodiazepines Scrn Negative ng/mL (Negative) 06/17/23 01:54 Urine Cocaine Screen Negative ng/mL (Negative) 06/17/23 01:54 U Marijuana (THC) Screen Negative ng/mL (Negative) 06/17/23 01:54 Ethyl Alcohol < 10 mg/dL (0-10) 06/17/23 00:24 Vitals Last Vital Signs Temp 97.4 F L 06/18/23 08:00 Pulse 76 06/18/23 08:00 Resp 20 H 06/18/23 08:00 BP 196/106 06/18/23 08:00 Pulse Ox 94 06/18/23 08:00 O2 Del Method Room Air 06/18/23 08:00 O2 Flow Rate 2 06/17/23 08:24 Discharge Plan Discharge Patient Disposition: Home Condition: Stable Prescriptions: New hydralazine 25 mg tablet 25 mg PO TID Qty: 90 0RF levofloxacin 500 mg tablet 500 mg PO Q24H 3 Days Qty: 3 0RF Continued melatonin 10 mg capsule 10 mg PO DAILY Multiple Vitamin-Minerals Tablet 1 tab PO DAILY mecobalamin (vitamin B12) 1,000 mcg tablet,disintegrating 1,000 mcg sublingual DAILY Rx Instructions: place tablet under tongue and allow to dissolve for at least30 secs before swallowing cholecalciferol (vitamin D3) 50 mcg (2,000 unit) capsule 50 mcg PO DAILY albuterol sulfate 90 mcg/actuation HFA aerosol inhaler 2 puff inhalation Q6H PRN (Reason: shortness of breath or wheezing) Qty: 8.5 0RF albuterol sulfate 2.5 mg /3 mL (0.083 %) solution for nebulization 2.5 mg inhalation QID PRN (Reason: shortness of breath or wheezing) Qty: 90 0RF ipratropium-albuterol 0.5 mg-3 mg(2.5 mg base)/3 mL solution for nebulization 3 ml inhalation Q6H PRN (Reason: wheezing) Qty: 90 0RF tramadol 50 mg tablet 50 mg PO BID PRN (Reason: pain) Qty: 60 0RF carbamazepine 200 mg tablet 200 mg PO BID Qty: 60 5RF memantine 5 mg tablet 5 mg PO BID Qty: 180 5RF simvastatin 40 mg tablet 40 mg PO DAILY Qty: 90 1RF lisinopril 40 mg tablet 40 mg PO DAILY Qty: 90 1RF sertraline 100 mg tablet 100 mg PO DAILY Qty: 90 1RF gabapentin 100 mg capsule 100 mg PO QPM Discontinued hydrochlorothiazide 25 mg tablet 25 mg PO DAILY potassium chloride 20 mEq tablet extended release 20 meq PO DAILY hydralazine 10 mg tablet 10 mg PO TID 90 Days Qty: 270 1RF Discharge Orders: Discharge Order (Routine); Ordered 06/18/23 Ordered By: Keo Gamble Referrals: Nancy Verma FNP [Primary Care Provider] - 06/25/23 10:00 am Discharge Diet: Cardiac Discharge Activity: Resume usual activity and Increase activity as tolerated Patient Instructions: Hydralazine (By mouth), Urinary Tract Infection in Women (GEN), How to Take a Blood Pressure Reading (DC), Chronic Hypertension (GEN), Altered Mental Status (ED), Opioid Safety Activity Restrictions/Additional Instructions: Dose of hydralazine has been increased to 25 mg twice daily. Do not take hydrochlorothiazide and potassium supplements anymore. Please check your blood pressure daily at home maintain a blood pressure diary and follow-up with a primary care provider within next 1 week for further adjustment of antihypertensives. You should have a repeat carbamazepine blood level drawn on a follow-up with a primary care provider. Further dosage changes will be done as per those levels. Discharge Attestations Time Spent in Discharge Care*: greater than 30 min Specific Discharge Activities: educating patient, educating and/or supporting family/caregiver, discussing with pcp/other providers, discussing with case worker/social workers/dc planners, documenting/other paperwork and evaluating patient/reviewing data Status at Discharge: Cognitive status at discharge: mildly impaired cognition, Behavioral status at discharge: cooperative and can be uncooperative, Functional status at discharge: independent ambulation, Overall status at discharge: patient is back to baseline Quality Metrics Clinical Quality Measures [ No reported AMI, CVA or VTE this stay] Coding Level of Care Code 02920 Total time (in minutes) for Discharge: 60 Diagnoses Altered mental status R41.82 Accidental overdose T50.901A Abnormal urinalysis R82.90
[2023-06-18 12:00] VITALS: BP 156/72; PULSE 87; RESP 19; TEMP 36.7; O2SAT 94
--- NOTE | 2023-06-18 13:14 | PC.NURSE ---
Discussed discharge with patient and family. Discussed new medications, follow up appointments and discontinued medications. Son verbalized understanding.
[2023-06-18 13:17] VITALS: BP 156/72; PULSE 87; RESP 19; TEMP 36.7; O2SAT 94
== END 2023-06-18 11:55 | disposition home or self-care (01) ==
LOC: ER 06-17 03:04 → MEDSURG 06-17 03:26
PROVIDERS: Admitting Provider Internal Medicine; Emergency Provider Emergency Medicine; PCP Nurse Practitioner Family; Visit Provider Student in an Organized Health Care Education/Training Program
DX: R41.82 Altered mental status, unspecified (principal); T50.901A Poisoning by unspecified drugs, medicaments and biological substances, accidental (unintentional), initial encounter; R82.90 Unspecified abnormal findings in urine; F03.90 Unspecified dementia, unspecified severity, without behavioral disturbance, psychotic disturbance, mood disturbance, and anxiety; J44.9 Chronic obstructive pulmonary disease, unspecified; I10 Essential (primary) hypertension; Z91.81 History of falling; R27.0 Ataxia, unspecified; Z87.891 Personal history of nicotine dependence
CPT/HCPCS: 36415; 70450; 70551; 71045; 80053; 80156; 80306; 80307; 81001; 81003; 82607; 83540; 83550; 84443; 85025; 87086; 93005; 96365; 96375; 96376; 97161; 97167; 99285; G0378; J0360; J0696; J7030

== ENCOUNTER → 2023-06-27 12:30 | Outpatient (BNVA) | payer MEDICARE, SELFPAY | PROVIDERS: PCP Nurse Practitioner Family; Visit Provider Nurse Practitioner Family | DX: T50.901D Poisoning by unspecified drugs, medicaments and biological substances, accidental (unintentional), subsequent encounter (principal) | CPT/HCPCS: 80053; 80156; 85025 ==

== ENCOUNTER → 2023-08-05 10:57 | Outpatient (BNVA) | payer MEDICARE, SELFPAY | PROVIDERS: PCP Nurse Practitioner Family; Visit Provider Nurse Practitioner Family | DX: R50.9 Fever, unspecified (principal); R05.9 Cough, unspecified | CPT/HCPCS: 87071; 87400; 87880 ==

== ENCOUNTER → 2023-08-13 10:23 | Outpatient (BNVA) | payer MEDICARE, SELFPAY | PROVIDERS: PCP Nurse Practitioner Family; Visit Provider Podiatrist Foot & Ankle Surgery | DX: I73.9 Peripheral vascular disease, unspecified (principal); L60.3 Nail dystrophy; L60.8 Other nail disorders | CPT/HCPCS: 11721 ==

== ENCOUNTER → 2023-12-24 17:06 | Outpatient (BNVA) | payer MEDICARE, SELFPAY | PROVIDERS: PCP Nurse Practitioner Family; Visit Provider Nurse Practitioner Family | DX: I10 Essential (primary) hypertension (principal); R23.3 Spontaneous ecchymoses | CPT/HCPCS: 80053; 80061; 84443; 85025 ==

== ENCOUNTER → 2024-03-19 11:58 | Outpatient (BNVA) | payer MEDICARE, SELFPAY | PROVIDERS: PCP Nurse Practitioner Family; Visit Provider Nurse Practitioner Family | DX: R35.0 Frequency of micturition (principal); Z23 Encounter for immunization | CPT/HCPCS: 81003 ==

== ENCOUNTER → 2024-04-28 12:04 | Outpatient (BNVA) | payer MEDICARE, SELFPAY | PROVIDERS: PCP Nurse Practitioner Family; Visit Provider Nurse Practitioner Family | DX: M25.562 Pain in left knee (principal); W19.XXXA Unspecified fall, initial encounter; S89.92XA Unspecified injury of left lower leg, initial encounter; Y92.009 Unspecified place in unspecified non-institutional (private) residence as the place of occurrence of the external cause | CPT/HCPCS: 73562 ==

== ENCOUNTER → 2024-05-14 14:04 | Outpatient (BNVA) | payer MEDICARE, SELFPAY | PROVIDERS: PCP Nurse Practitioner Family; Visit Provider Nurse Practitioner Family | DX: J06.9 Acute upper respiratory infection, unspecified (principal) | CPT/HCPCS: 87400 ==

== ENCOUNTER → 2024-07-29 12:19 | Outpatient (BNVA) | payer MEDICARE, SELFPAY | PROVIDERS: PCP Nurse Practitioner Family; Visit Provider Nurse Practitioner Family | DX: I10 Essential (primary) hypertension (principal); R35.0 Frequency of micturition | CPT/HCPCS: 80053; 80061; 81003; 82607; 83735; 84443; 85025; 87086 ==

== ENCOUNTER → 2024-08-11 14:04 | Outpatient (BNVA) | payer MEDICARE, SELFPAY | PROVIDERS: PCP Nurse Practitioner Family; Visit Provider Podiatrist Foot & Ankle Surgery | DX: I73.9 Peripheral vascular disease, unspecified (principal); L60.3 Nail dystrophy; L60.8 Other nail disorders; M20.41 Other hammer toe(s) (acquired), right foot; M20.42 Other hammer toe(s) (acquired), left foot; G62.9 Polyneuropathy, unspecified | CPT/HCPCS: 99214 ==

== ENCOUNTER → 2024-08-17 15:52 | Outpatient (BNVA) | payer MEDICARE, SELFPAY | PROVIDERS: PCP Nurse Practitioner Family; Referring Provider Nurse Practitioner Family; Visit Provider Psychiatry & Neurology Neurology | DX: F03.90 Unspecified dementia, unspecified severity, without behavioral disturbance, psychotic disturbance, mood disturbance, and anxiety (principal); G50.0 Trigeminal neuralgia | CPT/HCPCS: 82542; 83520; 99213 ==

== ENCOUNTER 2024-08-31 11:04 | Outpatient (CLI) | payer MEDICARE, SELFPAY ==
--- NOTE | 2024-08-31 11:00 | MR_ITS ---
WS: [id number] MRI BRAIN WITHOUT CONTRAST HISTORY: F03.90 - Unspecified dementia, unspecified severity, right-sided headaches. COMPARISON: 06/17/2023, head CT 06/16/2023 TECHNIQUE: Diffusion imaging, multiplanar T1, T2 and FLAIR imaging obtained. Diffusion imaging is normal. No acute infarct. Extensive confluent and patchy T2 and FLAIR signal hyperintensities throughout the cerebral white matter. This is similar to the study of 06/17/2023 with no obvious progression. There is also moderate cerebral and cerebellar atrophy and hippocampal atrophy which is stable. Ventricles and extra-axial spaces are prominent with the extent of atrophy. No inferior displacement of cerebellar tonsils. The sella turcica and pituitary gland are unremarkable. Dural venous sinuses and [place] demonstrate no abnormality on this unenhanced studies. Paranasal sinuses: Clear. Mastoid air cells: Normal. Calvarium and scalp: Intact. MR/MR head wo con* [id number] IMPRESSION: 1. No acute diffusion abnormality or hemorrhage. 2. Severe small vessel ischemic type changes with no large territory infarct. Cerebral and cerebellar atrophy and hippocampal atrophy are stable. 3. No paranasal sinus disease.
== END 2024-08-31 11:05 | disposition home or self-care (01) ==
PROVIDERS: PCP Nurse Practitioner Family; Visit Provider Psychiatry & Neurology Neurology
DX: R93.0 Abnormal findings on diagnostic imaging of skull and head, not elsewhere classified (principal); F03.90 Unspecified dementia, unspecified severity, without behavioral disturbance, psychotic disturbance, mood disturbance, and anxiety; G31.89 Other specified degenerative diseases of nervous system
CPT/HCPCS: 70551

== ENCOUNTER → 2024-09-01 14:50 | Outpatient (BNVA) | payer MEDICARE, SELFPAY | PROVIDERS: PCP Nurse Practitioner Family; Referring Provider Psychiatry & Neurology Neurology; Visit Provider Psychiatry & Neurology Neurology | DX: R56.9 Unspecified convulsions (principal) | CPT/HCPCS: 95813 ==

== ENCOUNTER 2025-01-31 20:48 | Emergency (ER) | payer MEDICARE, SELFPAY ==
[2025-01-31 20:41] VITALS: BP 194/94; PULSE 77; RESP 16; TEMP 36.8; O2SAT 99; BMI 25.1
--- NOTE | 2025-01-31 20:47 | XRR_ITS ---
PROCEDURE INFORMATION: Exam: XR Left Shoulder Exam date and time: 01/31/2025 8:49 PM Age: 84 years old Clinical indication: Injury or trauma; Blunt trauma (contusions or hematomas); EMS arrival for fall. C/O left shoulder pain. TECHNIQUE: Imaging protocol: Radiologic exam of the left shoulder. Views: 2 or more views. COMPARISON: CR XR chest 1V portable [id number] 06/17/2023 12:27 AM FINDINGS: Bones/joints: This is a transverse displaced fracture of the left mid clavicle with over riding of the fracture fragments. There is narrowing degenerative changes left AC joint Soft tissues: Normal. XR/XR shoulder LT min 2V* [id number] IMPRESSION: Findings fracture of the left mid clavicle as above
--- NOTE | 2025-01-31 20:49 | ED_ITS ---
HPI - Fall General: Chief Complaint: Fall Stated Complaint: FALL Source: patient and EMS Mode of arrival: EMS Limitations: no limitations History of Present Illness: 84-year-old female states that she was u sing the bathroom and stood up slipped fell onto her left shoulder. She has bruising left shoulder and complains of left shoulder pain she rates a 7 out of 10. She denies any other injuries denies hitting her head denies any neck pain. States her pain is much worse with movement. Related Data Home Medications ?Medication ?Instructions ?Recorded ?Confirmed melatonin 10 mg capsule 10 mg PO DAILY 02/19/2310/14 Previous Rx's ?Medication ?Instructions ?Recorded hydralazine 25 mg tablet See Rx Instructions .Route 0 05/12/24 .COMPLEX #270 tabs polyethylene glycol 3350 17 17 g PO DAILY PRN constipa tion 07/29/24 gram/dose oral powder (Miralax) #510 grams carbamazepine 300 mg 300 mg PO BID 90 days #180 c aps 08/20/24 capsule,extended release [id number] (Carbatrol) lisinopril 40 mg tablet See Rx Instructions .Route 0 08/25/24 .COMPLEX #100 tabs simvastatin 40 mg tablet See Rx Instructions .Route 0 08/25/24 .COMPLEX #100 tabs memantine 5 mg tablet (Namenda) 5 mg PO BID 30 days #6 0 tabs 09/09/24 hydrocodone 5 mg-acetaminophen 325 1 tab PO Q6H PRN pa in #14 tabs 01/31/25 mg tablet Allergies Allergy/AdvReac Type Severity Reaction Status Date / Time amlodipine Allergy Unknown unknown Verified 10/12/24 16:51 propranolol Allergy Unknown Unknown Verified 10/12/24 16:51 zolpidem (From Ambien) AdvReac Intermediate confusion Verified 10/12/24 16:51 Review of Systems Musc: Reports: extremity pain PFSH ED PFSH: Medical History Psychiatric care Enrolled in chronic care management Anxiety Fracture of right hip requiring operative repair Intestinal abscess 2006 Hypomagnesemia Vitamin D deficiency PVC (premature ventricular contraction) Heart murmur Dementia Trigeminal neuralgia COPD (chronic obstructive pulmonary disease) Hyperlipidemia Osteoarthritis Chronic back pain Hypertension Surgical History History of cataract surgery 2020 History of surgery on wrist 1994, 1995, 1996, 1997 History of total left hip arthroplasty 2016 History of hysterectomy total abdominal Hx of appendectomy 2005 Family History Mother Dementia Sister Dementia Social History Smoking and tobacco/nicotine status: former use of tobacco/nicotine Quit status (tobacco/nicotine): has quit using Year quit tobacco: smoked 40 years Second hand smoke exposure: No Alcohol intake: never Substance/Drug Use: never Household members: family Marital status: / Female Reproductive History: Para: 1 Physical Exam Const: COMMON NORMALS: no acute distress, patient oriented x3 and healthy appearing HENMT: COMMON NORMALS: normocephalic and atraumatic HEAD & SCALP: normocephalic and atraumatic Eye: COMMON NORMALS: conjunctivae normal CONJUNCTIVA: Yes conjunctivae normal Neck/C-Spine: COMMON NORMALS: full ROM and supple CERVICAL SPINE: No Cervical spine tenderness Chest: COMMONS NORMALS: normal inspection of the chest Resp: COMMON NORMALS: normal respiratory effort, No retractions, No use of accessory muscles and clear to auscultation bilaterally AUSCULTATION: clear to auscultation bilaterally Cardio: COMMON NORMALS: regular rate, regular rhythm and No murmurs present (Cardio) RATE: regular rate RHYTHM: regular rhythm Extremity: COMMON NORMALS: full ROM NARRATIVE EXTREMITY EXAM: Contusion noted over left clavicle with tenderness full range of motion no signs of dislocation Neuro: COMMON NORMALS: patient oriented x3, moves all extremities and no focal motor deficits Psych: COMMON NORMALS: mental status grossly normal, Normal thought process present and cooperative THOUGHT PROCESS: Normal thought process present Skin: COMMON NORMALS: no rashes or lesions noted and no wounds GENERAL SKIN EXAM: no rashes or lesions noted Course Vital Signs: Vital signs: Vital Signs Temperature 98.2 F 01/31/25 20:41 Pulse Rate 77 01/31/25 20:41 Respiratory Rate 16 01/31/25 20:41 Blood Pressure 194/94 01/31/25 20:41 Pulse Oximetry 99 01/31/25 20:41 Oxygen Delivery Me thod Room Air 01/31/25 20:41 MDM - Fall Medical Decision Making Patient presents here after a fall with left shoulder pain. X-ray does show clavicle fracture. She has no other signs of injury no head injury no neck pain we will place her in a sling did give her hydrocodone here will prescribe her hydrocodone for home she is to follow-up with orthopedics return if worsening she understands agrees to plan. Medical Records I reviewed the patient's medical records. All radiology interpretation(s) finalized by discharge ED provider radiology interpretation(s): xr L shoulder: clavicle fx Discharge Plan Discharge Patient Disposition: Home Clinical Impression: Fall Closed fracture of left clavicle Qualifiers: Encounter type: initial encounter Clavicle location: shaft Condition: Stable Prescriptions: New hydrocodone-acetaminophen 5-325 mg tablet 1 tab PO Q6H PRN (Reason: pain) Qty: 14 0RF No Action polyethylene glycol 3350 [Miralax] 17 gram/dose powder 17 g PO DAILY PRN (Reason: constipation) Qty: 510 1RF melatonin 10 mg capsule 10 mg PO DAILY flu vacc [id number](65yr up)-PF 180 mcg/0.5 mL syringe 0.5 ml IM ONCE Qty: 0.5 0RF hydralazine 25 mg tablet See Rx Instructions .ROUTE .COMPLEX Qty: 270 3RF Dose Instruction: TAKE 1 TABLET BY MOUTH 3 TIMES DAILY Rx Instructions: TAKE 1 TABLET BY MOUTH 3 TIMES DAILY carbamazepine [Carbatrol] 300 mg capsule, ER multiphase 12 hr 300 mg PO BID 90 Days Qty: 180 5RF simvastatin 40 mg tablet See Rx Instructions .ROUTE .COMPLEX Qty: 100 3RF Dose Instruction: TAKE 1 TABLET BY MOUTH DAILY Rx Instructions: TAKE 1 TABLET BY MOUTH DAILY lisinopril 40 mg tablet See Rx Instructions .ROUTE .COMPLEX Qty: 100 3RF Dose Instruction: TAKE 1 TABLET BY MOUTH DAILY Rx Instructions: TAKE 1 TABLET BY MOUTH DAILY memantine [Namenda] 5 mg tablet 5 mg PO BID 30 Days Qty: 60 3RF Discharge Orders: Discharge ED (Routine); Ordered 01/31/25 Ordered By: Maki Loera Referrals: Tito Jerez MD [Physician, Orthopedics] - 4-7 days Nancy Verma FNP [Primary Care Provider, Family Practice] Discharge Diet: Advance as tolerated Discharge Activity: Resume usual activity Patient Instructions: Clavicle Fracture (ED), Opioid Safety Print Language: Cook Islander Coding Level of Care Code ED Bucket Wash Operator for Wilfredo Zaragoza
[2025-01-31] MEDS: HYDROcodone-acetaminophen 5-325 mg Tablet 1 TAB PO (20:53)
--- NOTE | 2025-01-31 21:28 | PC.NURSE ---
called report to [facility], spoke to Tamara, Tamara states no transportation available, pt informed, pt taken to lobby and using phone to call ride, pt educated on registration desk can help can a cab if needed.
[2025-01-31 21:31] VITALS: BP 178/97; PULSE 79; O2SAT 96
--- NOTE | 2025-02-01 09:57 | DCPLANNER ---
messaged ortho for er f/u
== END 2025-01-31 21:32 | disposition home or self-care (01) ==
PROVIDERS: Emergency Provider Emergency Medicine; PCP Nurse Practitioner Family
DX: S42.002A Fracture of unspecified part of left clavicle, initial encounter for closed fracture (principal); W01.0XXA Fall on same level from slipping, tripping and stumbling without subsequent striking against object, initial encounter; J44.9 Chronic obstructive pulmonary disease, unspecified; E78.5 Hyperlipidemia, unspecified; I10 Essential (primary) hypertension
CPT/HCPCS: 73030; 99283; J9999

== ENCOUNTER → 2025-02-04 11:27 | Outpatient (BNVA) | payer MEDICARE, SELFPAY | PROVIDERS: PCP Nurse Practitioner Family; Visit Provider Orthopaedic Surgery | DX: S42.022A Displaced fracture of shaft of left clavicle, initial encounter for closed fracture (principal); W01.0XXA Fall on same level from slipping, tripping and stumbling without subsequent striking against object, initial encounter | CPT/HCPCS: 73000; 99204 ==

== ENCOUNTER 2025-02-07 19:00 | Emergency (ER) | payer MEDICARE, SELFPAY ==
[2025-02-07 19:18] VITALS: BP 199/108; PULSE 86; RESP 14; TEMP 36.6; O2SAT 97; BMI 22.2
[2025-02-07 19:24] VITALS: BP 199/108; PULSE 86; RESP 14; TEMP 36.6; O2SAT 97
--- NOTE | 2025-02-07 19:34 | ECG_ITS ---
[facility] Test Date: 2025-02-07 Pat Name: Raegan Braun Department: Room: Gender: Female Setter Out: : 1940 Requested By: Jake Horne Order Number: [id number] Reading MD: JEFF MATTHEWS Measurements Intervals Kendrick Rate: 94 P: 40 MD: 180 QRS: 45 QRSD: 113 T: 71 QT: 385 QTc: 482 Interpretive Statements SINUS RHYTHM MODERATE INTRAVENTRICULAR CONDUCTION DELAY [110+ ms QRS DURATION] Compared to ECG 06/16/2023 23:45:44 No significant changes Electronically Signed On 02-07-2025 22:23:03 CDT by JEFF MATTHEWS [email or web address]
--- NOTE | 2025-02-07 19:38 | CTR_ITS ---
PROCEDURE INFORMATION: Exam: CT Head Without Contrast Exam date and time: 02/07/2025 7:56 PM Age: 84 years old Clinical indication: Dizziness TECHNIQUE: Imaging protocol: Computed tomography of the head without contrast. Radiation optimization: All CT scans at this facility use at least one of these dose optimization techniques: automated exposure control; mA and/or kV adjustment per patient size (includes targeted exams where dose is matched to clinical indication); or iterative reconstruction. COMPARISON: MR head wo con* [id number] 08/31/2024 11:28 AM RADIATION DOSE METRICS: Total DLP (mGy-cm): 1078.7 FINDINGS: Brain: Moderate global parenchymal volume loss. No acute intracranial hemorrhage. No mass effect or midline shift. Confluent areas of periventricular and subcortical white matter hypoattenuation, likely the sequela of microvascular ischemic changes. No loss of anders-white differentiation to suggest an acute infarct. Cerebral ventricles: No ventriculomegaly. Paranasal sinuses: Visualized sinuses are unremarkable. No fluid levels. Mastoid air cells: Visualized mastoid air cells are well aerated. Bones: Unremarkable. No acute fracture. Soft tissues: Mild subcutaneous scalp swelling involving the left posterolateral scalp. CT/CT head wo con* [id number] IMPRESSION: 1. No acute intracranial hemorrhage. 2. Severe background of chronic microvascular ischemic changes.
--- NOTE | 2025-02-07 19:39 | CTR_ITS ---
PROCEDURE INFORMATION: Exam: CT Abdomen And Pelvis With Contrast Exam date and time: 02/07/2025 8:00 PM Age: 84 years old Clinical indication: Abdominal pain; Generalized; Prior surgery; Surgery date: 6+ months; Surgery type: Appy. Hysterectomy. Ken; Diffuse abd pain with nausea; Additional info: Abd pain vomiting TECHNIQUE: Imaging protocol: Computed tomography of the abdomen and pelvis with contrast. Radiation optimization: All CT scans at this facility use at least one of these dose optimization techniques: automated exposure control; mA and/or kV adjustment per patient size (includes targeted exams where dose is matched to clinical indication); or iterative reconstruction. Contrast material: OMNI 350; Contrast volume: 80 ml; Contrast route: INTRAVENOUS (IV); COMPARISON: CR XR chest 1V portable [id number] 06/17/2023 12:27 AM RADIATION DOSE METRICS: Total DLP (mGy-cm): 1246.24 FINDINGS: Lungs: Right lower lobe minimal atelectasis. Coronary arteries: Coronary artery atherosclerotic calcifications. Liver: 3.9 cm complex low-density mass in the caudal aspect of the liver. 19 mm low-density likely cyst in the left hepatic lobe. Gallbladder and biliary ducts: Normal. No calcified stones. No ductal dilation. Pancreas: Normal. No ductal dilation. Spleen: Normal. No splenomegaly. Adrenal glands: Normal. No mass. Kidneys and ureters: Right kidney cyst, negative for follow up advised. Stomach and bowel: Prominent fluid in the stomach, please correlate for a gastritis. Diverticulosis without diverticulitis. 15 mm somewhat hyperdense soft tissue nodules suspected in the proximal ascending colon, series 4, image 55, may reflect a prominent ileocecal valve, correlation with colonoscopy advised. Appendix: No evidence of appendicitis. Intraperitoneal space: Unremarkable. No free air. No significant fluid collection. Vasculature: Mesenteric, aortic and bilateral renal artery atherosclerotic calcifications. Extensive iliac and visualized lower extremity arterial atherosclerotic calcifications, CT angiogram could further characterize these. Lymph nodes: Unremarkable. No enlarged lymph nodes. Lymph nodes: Unremarkable. No enlarged lymph nodes. Urinary bladder: Unremarkable as visualized. Reproductive: Unremarkable as visualized. Bones/joints: Right hip arthroplasty changes. Multifocal low-density bony lesions layers in the pelvis, for instance in the right iliac wing measuring up to 13 mm series 4, image 51, please correlate for malignancies such as multiple myeloma. MRI could further characterize these. Soft tissues: Unremarkable. CT/CT abdomen pelvis w con* [id number] IMPRESSION: 1. Prominent fluid in the stomach, please correlate for a gastritis. 2. 3.9 cm complex low-density mass in the caudal aspect of the liver. Further evaluation with non-emergent liver MRI is recommended. (Reference: Belkis) 3. Diverticulosis without diverticulitis. 4. Mesenteric, aortic and bilateral renal artery atherosclerotic calcifications. 5. Right hip arthroplasty changes. 6. Right kidney cyst, negative for follow up advised. 7. Right lower lobe minimal atelectasis. 8. Coronary artery atherosclerotic calcifications. 9. Multifocal low-density bony lesions layers in the pelvis, for instance in the right iliac wing measuring up to 13 mm series 4, image 51, please correlate for malignancies such as multiple myeloma. MRI could further characterize these. 10. 15 mm somewhat hyperdense soft tissue nodules suspected in the proximal ascending colon, series 4, image 55, may reflect a prominent ileocecal valve, correlation with colonoscopy advised. 11. 19 mm low-density likely cyst in the left hepatic lobe. MRI could further characterize this as well. 12. Extensive iliac and visualized lower extremity arterial atherosclerotic calcifications, CT angiogram could further characterize these. REFERENCES: Belkis BRAUN, et al. Management of Incidental Liver Lesions on CT: A White Paper of the ACR Incidental Findings Committee. J Am Freddy Radiol. 2017;14(11):1312-4927.
[2025-02-07] MEDS: ondansetron 2 mg/ML SDV 2 mL 4 MG IVP (19:45)
--- NOTE | 2025-02-07 19:56 | ED_ITS ---
HPI - General Adult 2 General: Chief complaint: General Medical Stated complaint: nausea and dizziness Time Seen by Provider: 02/07/25 19:18 History of Present Illness: Patient is an 84-year-old female who presents with complaints of nausea and dizziness that began earlier this afternoon. She reports feeling sick to her stomach and experiencing dizziness upon standing. She denies noticing the room spinning but describes a general feeling of dizziness. Patient denies fever and cough. She reports a recent episode of incontinence where she had a bowel movement accident in her bathroom, fell, and sustained an injury. Patient states she recently took some new medication for bowel problems, which may be temporally related to her current symptoms. She has a history of hypertension and has been on antihypertensive medication for a long long time. Patient reports she moved to the area a couple of years ago and cannot recall her primary care physician's name. Related Data Home Medications ?Medication ?Instructions ?Recorded ?Confirmed melatonin 10 mg capsule 10 mg PO DAILY 02/19/2301/14 Previous Rx's ?Medication ?Instructions ?Recorded hydralazine 25 mg tablet See Rx Instructions .Route 0 05/12/24 .COMPLEX #270 tabs polyethylene glycol 3350 17 17 g PO DAILY PRN constipa tion 07/29/24 gram/dose oral powder (Miralax) #510 grams carbamazepine 300 mg 300 mg PO BID 90 days #180 c aps 08/20/24 capsule,extended release [id number] (Carbatrol) lisinopril 40 mg tablet See Rx Instructions .Route 0 08/25/24 .COMPLEX #100 tabs simvastatin 40 mg tablet See Rx Instructions .Route 0 08/25/24 .COMPLEX #100 tabs memantine 5 mg tablet (Namenda) 5 mg PO BID 30 days #6 0 tabs 09/09/24 hydrocodone 5 mg-acetaminophen 325 1 tab PO Q6H PRN pa in #14 tabs 01/31/25 mg tablet tramadol 50 mg tablet 50 mg PO Q6H PRN pain #30 ta bs 02/04/25 lansoprazole 30 mg capsule,delayed 30 mg PO DAILY #30 caps 02/07/25 release (Prevacid) ondansetron 4 mg disintegrating 4 mg PO Q6H PRN nausea and 02/07/25 tablet vomiting #14 tabs Allergies Allergy/AdvReac Type Severity Reaction Status Date / Time amlodipine Allergy Unknown unknown Verified 02/04/25 11:33 propranolol Allergy Unknown Unknown Verified 02/04/25 11:33 zolpidem (From Ambien) AdvReac Intermediate confusion Verified 02/04/25 11:33 PFSH ED 2 PFSH: Medical History (Updated 02/08/25 @ 00:00 by SYLVIA Mills) Psychiatric care Enrolled in chronic care management Anxiety Fracture of right hip requiring operative repair Intestinal abscess 2005 Hypomagnesemia Vitamin D deficiency PVC (premature ventricular contraction) Heart murmur Dementia Trigeminal neuralgia COPD (chronic obstructive pulmonary disease) Hyperlipidemia Osteoarthritis Chronic back pain Hypertension Surgical History History of cataract surgery 2020 History of surgery on wrist 1994, 1995, 1996, 1997 History of total left hip arthroplasty 2015 History of hysterectomy total abdominal Hx of appendectomy 2006 Family History Mother Dementia Sister Dementia Social History Smoking and tobacco/nicotine status: former use of tobacco/nicotine Quit status (tobacco/nicotine): has quit using Year quit tobacco: smoked 40 years Second hand smoke exposure: No Alcohol intake: never Substance/Drug Use: never Household members: family Marital status: / Female Reproductive History: Para: 1 Physical Exam 2 Const: GENERAL APPEARANCE: cooperative and frail appearing HENMT: COMMON NORMALS: normocephalic, atraumatic and Normal external nose present HEAD & SCALP: normocephalic and atraumatic FACE & SINUS: normal facial exam and face symmetric NOSE: Normal external nose present Eye: COMMON NORMALS: Equal, round and reactive pupils present and EOMs intact bilaterally PUPIL: Yes Equal, round and reactive pupils present Neck/C-Spine: GENERAL: Yes trachea midline Chest: CHEST: Yes Symmetrical chest wall rise Resp: COMMON NORMALS: normal respiratory effort, No retractions, No use of accessory muscles and clear to auscultation bilaterally AUSCULTATION: clear to auscultation bilaterally Cardio: COMMON NORMALS: regular rate and regular rhythm RATE: regular rate RHYTHM: regular rhythm GI: COMMON NORMALS: Normal to inspection, nondistended, normoactive bowel sounds present Extremity: COMMON NORMALS: no pedal edema NARRATIVE EXTREMITY EXAM: Left upper extremity tenderness to the left shoulder. Significant ecchymosis. Neuro: BRETT COMA SCALE: document [facility] findings [place] coma scale eye opening: Spontaneous Brett coma scale verbal response: Orientated Brett coma scale motor response: Obey commands [place] coma scale total score: 15 S ENSORY EXAM: Yes extremities (intact) Psych: COMMON NORMALS: speech normal SPEECH: Yes normal speech Skin: NARRATIVE SKIN EXAM: Significant ecchymosis over the left clavicular area. Course 2 Vital Signs: Vital signs: Vital Signs Temperature 97.9 F 02/07/25 19:24 Pulse Rate 96 02/07/25 23:20 Respiratory Rate 16 02/07/25 23:20 Blood Pressure 163/95 02/07/25 23:20 Pulse Oximetry 95 02/07/25 23:20 Oxygen Delivery Me thod Room Air 02/07/25 22:11 MDM - General Adult Medical Decision Making Patient with nausea vomiting. Some dizziness on standing. She was quite hypertensive on arrival. Blood pressure significantly improved currently after medication. Nausea is improved after medication. CBC is normal. BMP is not remarkable. Head CT shows chronic changes with no acute changes. CRP is 30. Urinalysis shows some contamination. Lipase is normal. Abdominal CT reveals some changes likely related to gastritis with some other chronic changes. Should be treated for gastritis. Watch blood pressures. Return for problems. Lab Data 02/07/25 19:52 02/07/25 19:[address] 02/07/25 19:38 IMPRESSION: 1. No acute intracranial hemorrhage. 2. Severe background of chronic microvascular ischemic changes. Abdomen/Pelvis CT 02/07/25 19:39 IMPRESSION: 1. Prominent fluid in the stomach, please correlate for a gastritis. 2. 3.9 cm complex low-density mass in the caudal aspect of the liver. Further evaluation with non-emergent liver MRI is recommended. (Reference: Belkis) 3. Diverticulosis without diverticulitis. 4. Mesenteric, aortic and bilateral renal artery atherosclerotic calcifications. 5. Right hip arthroplasty changes. 6. Right kidney cyst, negative for follow up advised. 7. Right lower lobe minimal atelectasis. 8. Coronary artery atherosclerotic calcifications. 9. Multifocal low-density bony lesions layers in the pelvis, for instance in the right iliac wing measuring up to 13 mm series 4, image 51, please correlate for malignancies such as multiple myeloma. MRI could further characterize these. 10. 15 mm somewhat hyperdense soft tissue nodules suspected in the proximal ascending colon, series 4, image 55, may reflect a prominent ileocecal valve, correlation with colonoscopy advised. 11. 19 mm low-density likely cyst in the left hepatic lobe. MRI could further characterize this as well. 12. Extensive iliac and visualized lower extremity arterial atherosclerotic calcifications, CT angiogram could further characterize these. REFERENCES: Belkis BRAUN, et al. Management of Incidental Liver Lesions on CT: A White Paper of the ACR Incidental Findings Committee. J Am Freddy Radiol. 2017;14(11):8058-9477. Laboratory Results WBC 7.44 10^3/uL (3.29-11.43) 02/07/25 19:52 RBC 4.10 10^6/uL (3.85-5.65) 02/07/25 19:52 Hgb 12.30 g/dL (11.27-16.99) 02/07/25 19:52 Hct 38.6 % (36-47) 02/07/25 19:52 MCV 94.1 fl (85-98) 02/07/25 19:52 MCH 30.0 pg (27-33) 02/07/25 19:52 MCHC 31.9 g/dL (30-55) 02/07/25 19:52 RDW 13.1 % (12.1-15.1) 02/07/25 19:52 Plt Count 176 10^3/cmm (157-399) 02/07/25 19:52 MPV 10.0 fL (7.4-10.4) 02/07/25 19:52 Neut % (Auto) 80.7 % 02/07/25 19:52 Lymph % (Auto) 11.0 % 02/07/25 19:52 Clarke % (Auto) 6.7 % 02/07/25 19:52 Eos % (Auto) 0.8 % 02/07/25 19:52 Baso % (Auto) 0.5 % 02/07/25 19:52 Neut # (Auto) 6.00 10^3/uL (1.8-7.7) 02/07/25 19:52 Lymph # (Auto) 0.8 10^3/uL (0.8-4.8) 02/07/25 19:52 Clarke # (Auto) 0.5 10^3/uL (0.2-0.9) 02/07/25 19:52 Eos # (Auto) 0.1 10^3/uL (0.0-0.8) 02/07/25 19:52 Baso # (Auto) 0.0 10^3/uL (0.0-0.1) 02/07/25 19:52 Nucleated RBC % (auto) 0 % 02/07/25 19:52 Nucleated RBCs # 0.0 /100WBC 02/07/25 19:52 Sodium 138 mmol/L (136-145) 02/07/25 19:52 Potassium 3.7 mmol/L (3.5-5.1) 02/07/25 19:52 Chloride 101 mmol/L (98-107) 02/07/25 19:52 Carbon Dioxide 25 mmol/L (22-29) 02/07/25 19:52 Anion Gap 15.7 (5-19) 02/07/25 19:52 BUN 10 mg/dL (8-23) 02/07/25 19:52 Creatinine 0.4 mg/dL (0.5-0.9) L 02/07/25 19:52 GFR Calculation Not Reportable 02/07/25 19:52 Glucose 115 mg/dL (65-115) 02/07/25 19:52 Calculated Osmolality 286 mOsm/kg (285-295) 02/07/25 19:52 Lactic Acid 1.0 mmol/L (0.5-2.2) 02/07/25 19:52 Calcium 8.2 mg/dL (8.5-10.5) L 02/07/25 19:52 Phosphorus 3.1 mg/dL (2.5-4.5) 02/07/25 19:52 Magnesium 1.8 mg/dL (1.7-2.3) 02/07/25 19:52 Total Bilirubin 0.3 mg/dL (0.15-1.2) 02/07/25 19:52 AST 14 U/L (0-32) 02/07/25 19:52 ALT 8 U/L (0-33) 02/07/25 19:52 Alkaline Phosphatase 78 U/L (35-105) 02/07/25 19:52 C-Reactive Protein 30.6 mg/L (0.0-4.9) H 02/07/25 19:52 Total Protein 5.8 g/dL (6.6-8.7) L 02/07/25 19:52 Albumin 3.3 g/dL (3.5-5.2) L 02/07/25 19:52 Globulin 2.5 g/dL (1.3-4.6) 02/07/25 19:52 Lipase 32 U/L (13-60) 02/07/25 19:52 Urine Color Yellow (Yellow) 02/07/25 21:46 Urine Appearance Cloudy (CLEAR) A 02/07/25 21:46 Urine pH 7.0 (5-7) 02/07/25 21:46 Ur Specific [place] 1.065 (1.005-1.030) H 02/07/25 21:46 Urine Protein Trace (Negative) A 02/07/25 21:46 Urine Glucose (UA) Negative (Normal) 02/07/25 21:46 Urine Ketones 1+ (Negative) H 02/07/25 21:46 Urine Blood Negative (Negative) 02/07/25 21:46 Urine Nitrate Negative (Negative) 02/07/25 21:46 Urine Bilirubin Negative (Negative) 02/07/25 21:46 Urine Urobilinogen 1.0 mg/dL (Negative) 02/07/25 21:46 Ur Leukocyte Esterase Trace (Negative) A 02/07/25 21:46 Urine RBC 11-20 /hpf (0-2) H 02/07/25 21:46 Urine WBC 6-10 /hpf (0-5) 02/07/25 21:46 Ur Squamous Epith Cells 6-10 /hpf (0-5) 02/07/25 21:46 Amorphous Sediment Not Reportable 02/07/25 21:46 Urine Bacteria None seen /hpf (NONE) 02/07/25 21:46 Hyaline Casts 2.46 /lpf 02/07/25 21:46 All radiology interpretation(s) finalized by discharge Discharge Plan Discharge Patient Disposition: Home Clinical Impression: Gastritis, Dizziness Condition: Stable Prescriptions: New lansoprazole [Prevacid] 30 mg capsule,delayed release(DR/EC) 30 mg PO DAILY Qty: 30 0RF ondansetron 4 mg tablet,disintegrating 4 mg PO Q6H PRN (Reason: nausea and vomiting) Qty: 14 0RF No Action polyethylene glycol 3350 [Miralax] 17 gram/dose powder 17 g PO DAILY PRN (Reason: constipation) Qty: 510 1RF tramadol 50 mg tablet 50 mg PO Q6H PRN (Reason: pain) Qty: 30 0RF melatonin 10 mg capsule 10 mg PO DAILY flu vacc [id number](65yr up)-PF 180 mcg/0.5 mL syringe 0.5 ml IM ONCE Qty: 0.5 0RF hydralazine 25 mg tablet See Rx Instructions .ROUTE .COMPLEX Qty: 270 3RF Dose Instruction: TAKE 1 TABLET BY MOUTH 3 TIMES DAILY Rx Instructions: TAKE 1 TABLET BY MOUTH 3 TIMES DAILY carbamazepine [Carbatrol] 300 mg capsule, ER multiphase 12 hr 300 mg PO BID 90 Days Qty: 180 5RF simvastatin 40 mg tablet See Rx Instructions .ROUTE .COMPLEX Qty: 100 3RF Dose Instruction: TAKE 1 TABLET BY MOUTH DAILY Rx Instructions: TAKE 1 TABLET BY MOUTH DAILY lisinopril 40 mg tablet See Rx Instructions .ROUTE .COMPLEX Qty: 100 3RF Dose Instruction: TAKE 1 TABLET BY MOUTH DAILY Rx Instructions: TAKE 1 TABLET BY MOUTH DAILY memantine [Namenda] 5 mg tablet 5 mg PO BID 30 Days Qty: 60 3RF hydrocodone-acetaminophen 5-325 mg tablet 1 tab PO Q6H PRN (Reason: pain) Qty: 14 0RF Discharge Orders: Discharge ED (Routine); Ordered 02/07/25 Ordered By: Jake Aparicio Referrals: Nancy Verma, [facility] [Primary Care Provider, Family Practice] - 1-3 days Patient Instructions: Opioid Safety, Pain Management, Patient Portal & [place] Instructions Activity Restrictions/Additional Instructions: Use nausea medication every 4 hours while awake for the first 24 hours scheduled, then as needed following that. Take the acid key account director for your stomach for the next 30 days as a minimum. Watch your blood pressure closely, especially for the next 3 days. Check twice daily. Report numbers to your doctor. Return for any problems. Print Language: Georgian Coding Level of Care Code ED Cable Mechanic for Wilfredo Zaragoza
[2025-02-07 19:57] LABS: Hematocrit 38.6 % (36-47); Hemoglobin 12.30 g/dL (11.27-16.99); Mean Corpuscular HGB Conc 31.9 g/dL (30-55); Mean Corpuscular Hemoglobin 30.0 pg (27-33); Mean Corpuscular Volume 94.1 fl (85-98); Nucleated Red Blood Cells % 0 %; Platelet Count 176 10^3/cmm (157-399); Red Blood Count 4.10 10^6/uL (3.85-5.65); White Blood Count 7.44 10^3/uL (3.29-11.43)
[2025-02-07] MEDS: iohexol 350 mg/mL 500 mL Btl (per mL) IV (19:59)
[2025-02-07 20:15] LABS: Alanine Aminotransferase 8 U/L (0-33); Albumin Level 3.3 g/dL (3.5-5.2); Alkaline Phosphatase 78 U/L (35-105); Blood Urea Nitrogen 10 mg/dL (8-23); Calcium 8.2 mg/dL (8.5-10.5); Carbon Dioxide 25 mmol/L (22-29); Chloride 101 mmol/L (98-107); Creatinine Clr Calc Pharmacy 48.5944; Globulin 2.5 g/dL (1.3-4.6); Glucose 115 mg/dL (65-115); Lipase 32 U/L (13-60); Magnesium 1.8 mg/dL (1.7-2.3); Osmolality Calculated 286 mOsm/kg (285-295); Sodium 138 mmol/L (136-145); Total Protein 5.8 g/dL (6.6-8.7)
[2025-02-07 20:17] LABS: Anion Gap 15.7 (5-19); Aspartate Amino Transferase 14 U/L (0-32); Lactic Sepsis W/Reflex 1.0 mmol/L (0.5-2.2); Potassium 3.7 mmol/L (3.5-5.1)
[2025-02-07 21:43] VITALS: BP 165/92; PULSE 86; RESP 16; O2SAT 92
[2025-02-07 21:49] LABS: Glucose Urine UA Negative (Normal); Nitrate Urine Negative (Negative)
[2025-02-07 21:52] LABS: Add Urine Microscopic? YES
[2025-02-07 21:56] LABS: Specific Gravity, Urine 1.065 (1.005-1.030)
[2025-02-07 22:11] VITALS: BP 162/92; PULSE 67; RESP 16; O2SAT 94
[2025-02-07] MEDS: ondansetron hcl ODT 4 mg Tab PO (22:43)
[2025-02-07] MEDS: HYDROcodone-acetaminophen 5-325 mg Tablet 1 TAB PO (22:48)
[2025-02-07 23:20] VITALS: BP 163/95; PULSE 96; RESP 16; O2SAT 95
== END 2025-02-07 23:22 | disposition home or self-care (01) ==
PROVIDERS: Emergency Provider Emergency Medicine; PCP Nurse Practitioner Family
DX: K29.70 Gastritis, unspecified, without bleeding (principal); R42 Dizziness and giddiness; Z87.891 Personal history of nicotine dependence; E78.5 Hyperlipidemia, unspecified; J44.9 Chronic obstructive pulmonary disease, unspecified; I10 Essential (primary) hypertension
CPT/HCPCS: 70450; 74177; 80053; 81001; 83605; 83690; 83735; 84100; 85025; 86140; 93005; 96374; 96375; 99285; J2405; J9999; Q0162

== ENCOUNTER → 2025-02-11 13:43 | Outpatient (BNVA) | payer MEDICARE, SELFPAY | PROVIDERS: PCP Nurse Practitioner Family; Visit Provider Orthopaedic Surgery | DX: S42.022D Displaced fracture of shaft of left clavicle, subsequent encounter for fracture with routine healing (principal); X58.XXXD Exposure to other specified factors, subsequent encounter | CPT/HCPCS: 73000; 99024; 99213 ==

== ENCOUNTER → 2025-03-01 13:19 | Outpatient (BNVA) | payer MEDICARE, SELFPAY | PROVIDERS: PCP Nurse Practitioner Family; Visit Provider Orthopaedic Surgery | DX: S42.022D Displaced fracture of shaft of left clavicle, subsequent encounter for fracture with routine healing (principal); X58.XXXD Exposure to other specified factors, subsequent encounter | CPT/HCPCS: 73000; 99213 ==